=== PATIENT | female | born 1970 | race Caucasian/White ===

== ENCOUNTER 2017-10-04 14:31 | Observation (INO) ==
--- NOTE | 2017-10-04 15:12 | Emergency Department Note ---
Disposition Clinical Impression: Unable to ambulate, Intractable pain Left knee pain Qualifiers: Chronicity: acute Qualified Code(s): M25.562 - Pain in left knee Disposition: Admitted As Inpatient Condition: Good Time of Disposition: 16:46 General Adult HPI - General Chief complaint: ED Syncope Stated complaint: syncope, fall Time Seen by Provider: 10/04/17 14:34 Source: patient Mode of arrival: EMS Limitations: no limitations Nursing Notes Reviewed: Yes Vital Signs Reviewed: Yes - History of Present Illness HPI Narrative: Patient is a 47 year old female with no past medical history. She presents today due to left knee pain, nausea, near syncope and syncope. Patient was seen yesterday in the ER due to left lower showed any pain. She states that she was taking down decorations at home, was walking down stairs, turned to brass pickler a box and felt a snap/in her left knee. This caused immediate pain and incontinence her to fall down [address] hardwood steps. She says that she hit the back of her head on a hardwood floor at the bottom of the stairs. Did not lose consciousness. She came to the ER due to leg pain at that time. She had x -rays of the left tib-fib, left knee, left ankle that were all negative. She did not have a head CT at that time, did not exhibit any numbness, tingling, weakness at that time. She was sent home with a knee immobilizer, Beau wrap the left knee, NSAIDs, Lynwood for pain control. She states that she has not been able to bear weight on the left lower extremity, has had difficulty with using crutches because she cannot get from a sitting to standing position on one leg. Overnight, she had worsening pain. She has had 2 episodes of syncope and nausea secondary to extreme pain when trying to bear weight on the left leg when getting up to go to the bathroom. Other than these episodes, she has no other near syncope or syncope that was not associated with trying to bear weight on the LLE. She also states that she cannot flex her left knee more than a few degrees. Otherwise, denies any other numbness, tingling, weakness, headache, changes in vision, chest pain, shortness of breath, abdominal pain, any other injuries that were not addressed at yesterday's visit. Pain Scale: 6 - Related Data Home Medications Medication Instructions Recorded Confirmed No Known Home Drugs 11/23/17 11/23/17 Allergies Allergy/AdvReac Type Severity Reaction Status Date / Time Penicillins Allergy Hives Verified 10/04/17 17:02 All systems ED: reviewed and negative except as stated. Constitutional: Denies: fever ENT ED: Denies: ear pain Cardiovascular: Denies: chest pain Respiratory: Denies: cough, dyspnea, wheezes, hemoptysis, stridor, sputum production Gastrointestinal: Denies: abdominal pain, nausea, vomiting, diarrhea Musculoskeletal: Reports: arthralgia, myalgia Neurological: Denies: weakness, paresthesias Past Medical History - Past Medical History Attestation: Yes The following information was validated with the patient. 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: non-contributory - Social History Smoking Status: Never smoker Smokeless Tobacco Status: No Alcohol use: Reports: none Drug use: Reports: none Physical Exam - General Limitations: no limitations General appearance: alert, in distress - Head Head exam: atraumatic, normocephalic, normal inspection - Eye Eye exam: Present: normal appearance, PERRL, EOMI - ENT ENT exam: normal exam, normal oropharynx, mucous membranes moist - Neck Neck exam: Present: normal inspection, full ROM, trachea midline - Chest Chest inspection: Present: normal inspection, symmetric chest wall rise - Respiratory Respiratory exam: Present: normal lung sounds bilaterally - Cardiovascular Cardiovascular exam: Present: regular rate, normal rhythm, normal heart sounds - Abdominal Exam Abdominal exam: Present: soft, Non-Tender. Absent: tenderness, distention, guarding, rebound, rigidity - Extremities Exam Extremities exam: Present: normal inspection, tenderness (tenderness of left medial and lateral joint line, suprapatellar tendon of left knee. Cannot actively flex or extend knee. Knee can only be taken to approx 30 degrees of flexion due to pain. Mild swelling of left knee, difficult to assess due to body habitus. ) - Neurological Exam Neurological exam: Present: alert, oriented X3. Absent: motor sensory deficit - Psychiatric Psychiatric exam: Present: normal affect, normal mood - Skin Skin exam: Present: warm, dry, intact, normal color Course Course Narrative: Vitals WNL on exam. Physical exam shows: tenderness of left medial and lateral joint line, suprapatellar tendon of left knee. Cannot actively flex or extend knee. Knee can only be taken to approx 30 degrees of flexion due to pain. Mild swelling of left knee, difficult to assess due to body habitus. Patient herself is concerned that she cannot get herself out of bed, cannot perform AEDs due to inability to get out of bed. We discussed that patient needs MRI for further internal assessment of left knee, but this cannot be obtained in ER. WIll try to get patient pain controlled in ER as she is only taking 1 norco 5 q4 hours. WIll give her two norco 5mg here and reassess. If patient cannot get pain controlled and ambulate, will have to admit for further care and ortho follow up. I do not feel that patient needs any additional workup for her syncope as it is only related to extreme pain when trying to bear weight on left knee. 16:28 patient reassessed. She is still having pain despite two 5mg Lynwood. Patient is given 4 mg IV morphine. We will reassess and provide additional medication if needed. If patient continues to have an trackable pain, unable to ambulate, will admit for further care. 16:41 Patient requiring additional pain medication for intractable left knee pain, unable to get out of bed due to pain in left knee. Dr. Putnam accepted for admission, orthopedics Dr. Gibbs has been consulted and will evaluate patient while in hospital. Vital Signs Temperature 97.9 F 10/04/17 14:44 Pulse Rate 73 10/04/17 14:44 Respiratory Rate 18 10/04/17 14:44 Blood Pressure 145/88 10/04/17 14:44 O2 Sat by Pulse Oximetry 100 10/04/17 14:44 Temperature 97.7 F 10/04/17 20:33 Pulse Rate 68 10/04/17 20:33 Respiratory Rate 16 10/04/17 20:33 Blood Pressure 125/77 10/04/17 20:33 O2 Sat by Pulse Oximetry 96 10/04/17 20:33 Oxygen Delivery Oxygen Delivery Room Air Medical Decision Making - [facility] Narrative Medical decision making narrative: Patient is requiring multiples doses of pain medication for intractable left knee pain, unable to get out of bed due to pain in left knee, unable to ambulate. Will admit for further pain control and evaluation by ortho consult. Concern for possible torn meniscus or ligamentous injury. - Medical Records Medical records reviewed: Yes I reviewed the patient's medical records. - Lab Data Lab results reviewed: Yes I reviewed the patient's lab results. Result diagrams: 10/04/17 20:47 - Radiology Data Radiology results reviewed: Yes I reviewed the patient's radiology results. - EKG Data EKG #1 EKG attestation: Yes I reviewed and interpreted this EKG. EKG results narrative: 10/04/2017 at 14:51. Normal sinus rhythm. Rate 70. IL 188. QRS 87. QTC 385. Left axis deviation. No acute ST elevation or depression. S.B.A.R. - S.Jese.A.Val Situation: Demographics, MOA Background: Presenting Complaint, Relevant PMH, Meds, & Allergies Assessment: Vital Signs, Course and respsone to treatment, Exam Concerns, Patient/Family Expectation, Pertinant Lab Results, Outstanding Labs Recommendation: Barrier(s) to disposition, Recommendation based on pending studies, treatments, or consults S.B.A.RHeidi Report Given to: Dr. Indy Pedersen Repor Time: 16:45 Attestation Statement - Attestation Attestation: I, Praful Robertson, examined this patient and my medical decision-making was reviewed with the SLOT FLOOR ATTENDANT/PA/Advanced Practice Nurse/Resident Physician. I agree with the documented findings, disposition and treatment plan as described except to the extent set forth below. 47-year-old female presents emergency Department with intractable pain of the left knee. Patient states she twisted her knee and felt a pop, falling down the stairs few days ago, she was prescribed Lynwood which she has taken at home without improvement of her pain. Patient states the pain becomes so severe she becomes lightheaded, nauseated and has not syncopized. Denies chest pain or shortness of breath. Denies fever, chills, abdominal pain, diarrhea. X-rays performed on her initial visit which did not show evidence of fracture. Patient likely needs MRI for evaluation of ligamentous injury. Patient given multiple doses of pain medication emergency Department however she is unable to ambulate with crutches. Patient will be admitted to the hospital for intractable pain and likely rehabilitation facility.
[2017-10-04] MEDS ORDERED: *HR* HYDROcodone/Acet 5/325 mg TABLET PO ONE (15:14)
[2017-10-04] MEDS ORDERED: *HR* Morphine 2 MG/ML SYRINGE IVP ONE ×2 (16:02→16:34)
--- NOTE | 2017-10-04 20:31 | Internal Med History&Physical ---
<Ramon Jin - Last Filed: 10/04/17 21:55> Date of Encounter: 10/04/17 Time of Encounter: 19:30 Assessment and Plan (1) Syncope Current visit: Yes Status: Acute Acute syncope this morning following a fall yesterday evening with head injury. Pt. states she is unsure if she blacked out during fall, but this morning she reports blacking out when returning from bathroom. States she became nauseous, diaphoretic, and went limp. caught her. Denies previous syncope, CVA, TIAs, or seizure hx. EKG today shows sinus rhythm with borderline left axis deviation, moderate voltage criteria for LVH, consider normal variant ( borderline ECG). Echocardiogram ordered. Continuous cardiac telemetry. Will order troponin to r/o possible ischemic incident. CT of the head/brain ordered to r/o possible intracranial bleeding. Falls/safety precautions. Pt. to be monitored closely for signs of neurologic changes or decline. Pt. at moderate risk for further morbidity based on sx and recent fall. Observation. Qualifiers: Syncope type: unspecified Qualified Code(s): R55 - Syncope and collapse (2) Fall Current visit: Yes Status: Acute Acute fall yesterday at 9 p.m. Pt. states she was decorating and turned to come down steps and heard/felt her left knee "pop". Fell down several steps, landing on her head. Unsure if she blacked out. Denies previous blackouts, seizures, CVA , or TIAs. Falls/safety precautions. PT/OT consults ordered to assess pt. for ambulation strength/safety. Qualifiers: Encounter type: initial encounter Qualified Code(s): W19.XXXA - Unspecified fall, initial encounter (3) Left knee pain Current visit: Yes Status: Acute Acute left knee pain d/t fall sustained yesterday. Pt. reports that she fell down several steps after hearing and feeling her knee "pop". States it feels like a similar incident in 2009 when she sprained her left knee. XR of the left ankle, knee, and tibia/fibula today shows Left knee: No evidence of acute fracture or dislocation. No focal osseous lesion. Moderate joint effusion. No focal soft tissue abnormality. Left tibia/fibula: There is no evidence of acute fracture. There is normal alignment. No acute joint abnormality. No focal osseous lesion. No focal soft tissue abnormality. Left ankle: No evidence of acute fracture or dislocation. Normal alignment of the ankle mortise. No focal osseous lesion. Prominent bony spurring along the plantar aspect of the calcaneus. No evidence of joint effusion. No focal soft tissue abnormality. CT of the left knee ordered to assess effusion. Stair-step pain medications for pain mgmt. Qualifiers: Chronicity: acute Qualified Code(s): M25.562 - Pain in left knee (4) DVT prophylaxis Current visit: Yes Status: Acute Bilateral SCD foot pumps on feet for DVT prophylaxis. Pharmacologic DVT prophylaxis contraindicated at this time until intracranial bleeding ruled out by CT. Internal Medicine - H&P: HPI Chief complaint: Syncope Admitted From: Emergency Dept Plans for Post Hospital Care: Home History of present illness: Ms. 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 Patient reports she fell at 9 PM yesterday down several stairs when she felt her left knee "pop". She reports she struck her head on the hardwood floor and landed with her feet over her head. Reports daily site on the right back of head. Unsure plucked out. Workup this morning and went to restroom with assistance of her . On the way back she reports she felt nauseous, diaphoretic, and went limp and blacked out for several seconds. Reports pain in left knee and back of head on right side but denies recent illness, fever, chills, vomiting, shortness of breath, chest pain, palpitations , changes in vision, unusual bleeding, abdominal pain, numbness, tingling, or hx of seizures/CVA/TIA. Past Med Surg Social Fam HX - Past Medical History Source: patient, old records reviewed Medical history: other (Previous heart murmur (Pt. reports as resolved)) Psychiatric history: anxiety - Past Surgical History Surgical History: other (Uterine ablation for polyps, tonsillectomy, and wisdom teeth extractions) - Social History Smoking Status: Never smoker Smokeless Tobacco Status: No Alcohol use: occasionally Drug use: none Current living situation: Home, With Family Activity Level: Independent ambulation Recent Out of Country Travel Within the Last 8 Weeks: No Exposure or Possible Exposure to Illness During Travel: No - Family History Mother Race: Family Member Ethnicity: Non- Living Status: Still Living Hx Family Cardiac Disorders: Yes (HTN) Father Race: Family Member Ethnicity: Non- Living Status: Still Living Hx Family Medical Disorders: No Sister Race: Family Member Ethnicity: Non- Living Status: Still Living Hx Family Medical Disorders: No Internal Medicine - H&P: Meds No Known Home Drugs 10/04/17 [History] 3 Allergy/AdvReac Type Severity Reaction Status Date / Time Penicillins Allergy Hives Verified 10/04/17 17:02 All Systems PM: A 10-system review of systems was performed and is negative for pertinent findings except as documented above in the HPI. - Constitutional Constitutional: no chills, no fever(s), no night sweats - EENT Eyes: no change in vision, no discharge, no pain, no photophobia Ears: no ear discharge, no ear pain, no tinnitus Nose, mouth and throat: no dysphagia, no nasal discharge, no neck pain, no sore throat - Breasts Breasts: as per HPI - Cardiovascular Cardiovascular ROS IM: as per HPI, syncope, no chest pain, no diaphoresis, no dyspnea, no lightheadedness, no palpitations - Respiratory Respiratory: no cough, no dyspnea, no wheezing, no excessive phlegm production - Gastrointestinal Gastrointestinal: no abdominal pain, no diarrhea, no hematemesis, no hematochezia, no melena, no nausea, no vomiting - Genitourinary Genitourinary: no change in urinary stream, no dysuria, no flank pain, no hematuria Menstruation: as per HPI, post menopausal - Musculoskeletal Musculoskeletal ROS IM: no numbness, no tingling - Integumentary Integumentary IM: no rash, no unusual bruising - Neurological Neurological ROS: no confusion, no convulsions, no focal weakness, no numbness, no tingling, no tremor(s) - Psychiatric Psychiatric: as per HPI, anxiety - Endocrine Endocrine IM: as per HPI - Hematologic/Lymphatic Hematologic/Lymphatic: no easy bruising - Allergic/Immunologic Allergic/Immunologic: as per HPI - Constitutional Vitals: Temp Pulse Resp BP Pulse Ox 97.7 F 71 16 110/56 94 10/04/17 14:49 10/04/17 17:35 10/04/17 17:57 10/04/17 17:57 10/04/17 17:35 General appearance: Present: cooperative, mild distress (D/t left knee pain), A& O X 3, pleasant, obese, answers questions appropriately - Head Additional comments: Raised area on the back of head on right side that pt. reports is tender and painful to touch on exam. - Eye Eye exam: Present: PERRL, conjuntiva pink, sclera anicteric Pupils: Present: PERRL - ENT ENT exam: Present: normal exam, normal external ear exam - Neck Neck exam general surgery: Present: normal inspection, supple, trachea midline. Absent: lymphadenopathy - Respiratory Respiratory exam: Present: CTAB. Absent: accessory muscle use, rales, rhonchi, wheezes - Cardiovascular Cardiovascular exam: Present: RRR, +S1, +S2. Absent: diastolic murmur, gallop, rubs, systolic murmur - GI/Abdominal GI/Abdominal exam: Present: normal bowel sounds, soft, no peritoneal signs. Absent: distended, tenderness - Rectal Rectal exam: Present: deferred - Additional comments: exam deferred. - Extremities Exam Extremities exam: Present: joint swelling (Left knee pain and edema), warm, radial pulses palpable and symmetrical. Absent: calf tenderness, cyanotic, pedal edema - Expanded Lower Extremities Exam Knee exam: Present: effusion (Left), swelling (Left) - Back Exam Back exam: Present: normal inspection - Neurological Exam Neurological exam: Present: CN II-XII intact, oriented X3, no focal deficits. Absent: pronater drift, facial droop, speech deficit - Psychiatric Psychiatric exam: Present: normal affect, normal mood - Skin Skin exam: Present: dry, intact Internal Med - H&P Results - Labs CBC & Chem 7: 10/04/17 20:47 10/04/17 20:47 - EKG Data EKG shows normal: sinus rhythm - EKG Data Prior EKG available for review: no EKG comments: 10/04/17 21:25 EKG dated 10/04/17 shows sinus rhythm with borderline left axis deviation, moderate voltage criteria for LVH. Consider normal variant. Borderline ECG. - Diagnostic Studies Other Images Additional comments: EXAMINATION: TWO VIEWS OF THE LEFT KNEE; 3 VIEWS OF THE LEFT ANKLE; AP AND LATERAL VIEWS OF THE LEFT TIBIA/FIBULA 10/04/2017 12:16 am COMPARISON: None. HISTORY: ORDERING SYSTEM PROVIDED HISTORY: fall, pain FINDINGS: Left knee: No evidence of acute fracture or dislocation. No focal osseous lesion. Moderate joint effusion. No focal soft tissue abnormality. Left tibia/fibula: There is no evidence of acute fracture. There is normal alignment. No acute joint abnormality. No focal osseous lesion. No focal soft tissue abnormality. Left ankle: No evidence of acute fracture or dislocation. Normal alignment of the ankle mortise. No focal osseous lesion. Prominent bony spurring along the plantar aspect of the calcaneus. No evidence of joint effusion. No focal soft tissue abnormality. XR/XR ankle complete min 3V LT IMPRESSION: No acute osseous abnormality. Moderate suprapatellar joint effusion. Bony spurring along the plantar aspect of the calcaneus. D/ / Serina Martin MD / Serina Martin MD Interpreting Provider: Serina Martin MD <Perry Ferraro - Last Filed: 10/05/17 05:48> Date of Encounter: 10/04/17 Internal Medicine - H&P: HPI History of present illness: Ms. Hogue is a 47 year old female All Systems PM: A 10-system review of systems was performed and is negative for pertinent findings except as documented above in the HPI. - Constitutional Vitals: Temp Pulse Resp BP Pulse Ox 98.0 F 76 12 125/81 93 10/05/17 04:55 10/05/17 04:55 10/05/17 04:55 10/05/17 04:55 10/05/17 04:55 Internal Med - H&P Results - Labs CBC & Chem 7: 10/04/17 20:47 10/04/17 20:47 Labs: Short CBC 10/04/17 Range/Units 20:47 WBC 8.6 (4.3-11.1) K/mcL Hgb 13.5 (11.5-15.4) g/dL Hct 41.6 (35.3-44.9) % Plt Count 229 (140-400) K/mcL Neutrophils # 6.1 (1.6-8.9) K/mcL BMP 10/04/17 20:47 Sodium 139 Potassium 3.7 Chloride 109 Carbon Dioxide 21 BUN 15 Creatinine 0.73 Glucose 108 H Calcium 9.8 Cardiac Enzymes 10/04/17 Range/Units 20:47 Troponin I 0.01 (0-0.03) ng/mL Liver Function 10/04/17 Range/Units 20:47 Total Bilirubin 1.0 (0.2-1.2) mg/dL AST 15 (5-34) Units/L ALT 20 (0-55) Units/L Alkaline Phosphatase 73 (38-126) Units/L Albumin 3.6 (3.5-5.0) g/dL - Impressions ITS Impressions Head CT 10/04/17 21:04 IMPRESSION: No acute intracranial abnormality. D/ / Behzad Fritz MD / Behzad Fritz MD Interpreting Provider: Behzad Fritz MD Knee CT 10/04/17 21:06 IMPRESSION: 1. Acute minimally did breast fracture of the posterior aspect of the lateral tibial plateau. 2. Moderate lipohemarthrosis. D/ / Ramiro Nava MD / Ramiro Nava MD Interpreting Provider: Ramiro Nava MD - Attending Attestation Date of service 10/04/2017. I conducted a face to face diagnostic evaluation of this patient and my medical decision-making was reviewed with the Nurse Practitioner. I agree with the documented findings, disposition and treatment plan as described except to the extent set forth below: Patient slipped while standing on the stairs in her home, went down 3 steps then left knee gave way and she heard a pop and then she tumbled the rest of the 10 stairs. Left knee is immobilized in a brace. Plan: CT of the left knee. Pain control. Orthopedics consult. PT OT. DVT prophylaxis with heparin.
[2017-10-04 20:53] LABS: Basophils % 0.2 %; Eosinophils # 0.1 K/mcL (0.0-0.6); Eosinophils % 0.7 %; Hematocrit 41.6 % (35.3-44.9); Hemoglobin 13.5 g/dL (11.5-15.4); Immature Granulocytes % 0.2 % (0-4); Lymphocytes % 23.6 %; Mean Corpuscular HGB Conc 32.5 g/dL (31.6-35.5); Mean Corpuscular Hemoglobin 27.7 pg (28.0-33.3); Mean Corpuscular Volume 85.4 fL (83.0-100.0); Monocytes # 0.4 K/mcL (0.0-1.3); Monocytes % 4.8 %; Neutrophils # 6.1 K/mcL (1.6-8.9); Platelet Count 229 K/mcL (140-400); Red Blood Count 4.87 M/mcL (3.82-4.97); Segmented Neutrophils % 70.5 %
[2017-10-04] MEDS ORDERED: Naloxone 0.4 MG/ML INJ IVP PRN (20:58)
[2017-10-04] MEDS ORDERED: Ondansetron 4 MG/2 ML VIAL IVP PRN (20:58)
[2017-10-04] MEDS ORDERED: Acetaminophen 325 MG TABLET PO PRN (20:58)
[2017-10-04 21:08] LABS: Alanine Aminotransferase 20 Units/L (0-55); Albumin 3.6 g/dL (3.5-5.0); Albumin/Globulin Ratio 1.1 (1.1-2.2); Alkaline Phosphatase 73 Units/L (38-126); Aspartate Amino Transferase 15 Units/L (5-34); BUN/Creatinine Ratio 21 (6-26); Blood Urea Nitrogen 15 mg/dL (7-20); Calcium 9.8 mg/dL (8.6-10.8); Carbon Dioxide 21 mEq/L (19-29); Chloride 109 mEq/L (98-109); Globulin 3.2 g/dL (2.4-3.5); Glucose 108 mg/dL (70-99); Osmolality,Calculated 289 (280-300); Potassium 3.7 mEq/L (3.5-4.5); Sodium 139 mEq/L (136-145); Total Protein 6.8 g/dL (6.0-8.3); eGFR For African Americans > 60 (> 60); eGFR For Non-African Americans > 60 (> 60)
[2017-10-04] MEDS: *HR* Morphine 2 MG/ML SYRINGE IVP PRN (23:03)
[2017-10-05] MEDS: *HR* HYDROcodone/Acet 5/325 mg TABLET PO PRN ×5 (00:37→23:01)
[2017-10-05 04:47] LABS: INR 1.1
[2017-10-05 04:50] LABS: Activated Partial Thrombo Time 25.3 Seconds (26.0-36.0)
[2017-10-05 05:01] LABS: Chol/HDL Ratio 5.5 (0-4.9); Magnesium 2.1 mg/dL (1.6-2.6)
[2017-10-05] MEDS: *HR* Heparin 5,000 UNIT/ML VIAL SQ SCH ×3 (06:17→23:01)
[2017-10-05] MEDS: *HR* Morphine 2 MG/ML SYRINGE IVP PRN ×2 (07:38→13:20)
--- NOTE | 2017-10-05 13:50 | Internal Med Progress Note ---
Date of Encounter: 10/05/17 Time of Encounter: 09:25 - Assessment and plan (1) Left knee pain Current Visit: Yes Status: Acute Assessment and plan: Patient reports that she was bringing a box of [place] decorations down from her loft . She said she was dragging the box and her left foot slipped on a stair, when she attempted to turn her knee turned only. She was brought to the emergency department, x-rays were completed, she was given an Beau wrap and a knee immobilizer and sent home. She returned later due to syncopal episode. She tells primary nurse she did not have any syncopal episodes, she tells me she had two. She says they are only due to pain. She states that she is unable to bear weight and is unable to go home. She has adequate range of motion to left hip and left ankle. Left lower extremity remains immobilized and elevated. CT left knee shows tibial plateau fracture, as well as moderate lipohemarthrosis. Orthopedics has been consulted, I appreciate their recommendations and consultation. She has been seen by ortho, recommend T scope splint, po pain management, as well as office follow up. Patient does not want to see physical therapy or occupational therapy until after she sees orthopedics, I agree that this is reasonable. They will see her in the morning. She has declined other further testing for syncope and called the orthopedics office today to see if they are going to come see her in the hospital. Knee CT 10/04/17 21:06 IMPRESSION: 1. Acute minimally did breast fracture of the posterior aspect of the lateral tibial plateau. 2. Moderate lipohemarthrosis. D/ / Ramiro Nava MD / Ramiro Nava MD Interpreting Provider: Ramiro Nava MD Qualifiers: Chronicity: acute Qualified Code(s): M25.562 - Pain in left knee (2) Unable to ambulate Current Visit: Yes Status: Acute Assessment and plan: Plan as above. Will defer to orthopedics for recommendations, also recommendations for pain management for fracture. (3) Intractable pain Current Visit: Yes Status: Acute Assessment and plan: Plan as above. (4) Syncope Current Visit: Yes Status: Acute Assessment and plan: Patient reports that she had 2 syncopal episodes prior to her second ER visit yesterday. She states that she follows with cardiology [facility], Dr. Kimbrough. She says that she had an echocardiogram in December of this year, as well as a heart catheter in July of this year. She was given a clean bill of health both times. She states that she does not need another echocardiogram or carotid Dopplers and calls both tests unnecessary. She refused to go to either test and they were canceled by the respective departments. She has declined further testing and I have recommended that she follow up with her medical stenographer after discharge. Qualifiers: Syncope type: unspecified Qualified Code(s): R55 - Syncope and collapse (5) DVT prophylaxis Current Visit: Yes Status: Acute Assessment and plan: Heparin SQ - Time Spent With Patient less than 15 minutes - Subjective Interval history: The patient was seen and assessed at 9:25 AM. She reports that she was bringing a tote of [place] decorations down from her loft, and fell on the slick edge of the carpet that is padded. Her first visit to the emergency department was due to the fall, she was splinted and sent home. She returned later in the evening complaining of syncopal episode 2. She states that she follows with cardiology at [facility] and has had recent workups this year. Initially she tells primary nurse that she did not have any syncopal episodes, when I enter the room she tells me she has syncopal episodes. She agreed to have a stress test since her last one was in December of this year. When transport came to get her she refused to go so that she did not need the test. She also called orthopedics office to see if they are going to come see her today. She also has refused carotid Dopplers. She states they are unnecessary test and only wants to have her knee looked at. She denies headache , blurred vision, abdominal pain, nausea, vomiting, diaphoresis, or diarrhea. She denies vision changes, dizziness, presyncope, or another syncopal episode. - Constitutional Vitals: Temp Pulse Resp BP Pulse Ox 98.3 F 51 16 139/89 96 10/05/17 10:55 10/05/17 10:55 10/05/17 10:55 10/05/17 10:55 10/05/17 10:55 General appearance: Present: cooperative, mild distress (D/t left knee pain), A& O X 3, morbidly obese, pleasant, no acute distress, obese, answers questions appropriately - Head Head exam: Present: atraumatic, normal inspection, normocephalic - Eye Eye exam: Present: normal appearance, conjuntiva pink, sclera anicteric - Neck Neck exam general surgery: Present: supple, trachea midline. Absent: lymphadenopathy - Respiratory Respiratory exam: Present: CTAB. Absent: accessory muscle use, rales, rhonchi, wheezes - Cardiovascular Cardiovascular exam: Present: RRR, +S1, +S2. Absent: diastolic murmur, gallop, rubs, systolic murmur - GI/Abdominal GI/Abdominal exam: Present: normal bowel sounds, soft. Absent: distended, hepatomegaly, tenderness - Extremities Exam Extremities exam: Present: normal inspection, warm, radial pulses palpable and symmetrical. Absent: calf tenderness, cyanotic, full ROM, pedal edema Additional comments: Patient has knee immobilizer and Beau to left lower extremity. - Neurological Exam Neurological exam: Present: alert, oriented X3, pronater drift. Absent: facial droop, speech deficit - Skin Skin exam: Present: dry, intact, normal color, warm. Absent: rash Internal Medicine: Result - Labs CBC & Chem 7: 10/04/17 20:47 10/04/17 20:47 Labs: Short CBC 10/04/17 Range/Units 20:47 WBC 8.6 (4.3-11.1) K/mcL Hgb 13.5 (11.5-15.4) g/dL Hct 41.6 (35.3-44.9) % Plt Count 229 (140-400) K/mcL Neutrophils # 6.1 (1.6-8.9) K/mcL BMP 10/04/17 20:47 Sodium 139 Potassium 3.7 Chloride 109 Carbon Dioxide 21 BUN 15 Creatinine 0.73 Glucose 108 H Calcium 9.8 Cardiac Enzymes 10/04/17 Range/Units 20:47 Troponin I 0.01 (0-0.03) ng/mL Liver Function 10/04/17 Range/Units 20:47 Total Bilirubin 1.0 (0.2-1.2) mg/dL AST 15 (5-34) Units/L ALT 20 (0-55) Units/L Alkaline Phosphatase 73 (38-126) Units/L Albumin 3.6 (3.5-5.0) g/dL - ABG Interpretation ABG results: PT/INR, D-dimer PT 12.0 Seconds (9.4-12.1) 10/05/17 04:21 - Impressions Impressions Head CT 10/04/17 21:04 IMPRESSION: No acute intracranial abnormality. D/ / Behzad Fritz MD / Behzad Fritz MD Interpreting Provider: Behzad Fritz MD Knee CT 10/04/17 21:06 IMPRESSION: 1. Acute minimally did breast fracture of the posterior aspect of the lateral tibial plateau. 2. Moderate lipohemarthrosis. D/ / Ramiro Nava MD / Ramiro Nava MD Interpreting Provider: Ramiro Nava MD Consult Discharge Plan - Plan Referrals: Nury Collazo MD [Primary Care Provider] -
--- NOTE | 2017-10-05 14:41 | Orthopedic Consult Note ---
Date of Encounter: 10/05/17 Time of Encounter: 14:41 Assessment and Plan (1) Left knee pain Current Visit: Yes Status: Acute The diagnosis and treatment plan were discussed with Ade. Her fracture is essentially nondisplaced and will best be treated nonoperatively. She should remain nonweightbearing of the left lower extremity. We will get her a T scope brace that can be unlocked. She can be range of motion as tolerated of the left knee. No plans for further orthopedic management, we will sign off. Follow-up in 3 weeks in the office. Qualifiers: Chronicity: acute Qualified Code(s): M25.562 - Pain in left knee History of Present Illness Chief complaint: L knee pain HPI: Ms. Hogue is a 47 year old female who fell down some stairs 2 days ago injuring her left knee. She was admitted to the hospital service for intractable knee pain, and to work up for a syncopal event. She states she is experiencing medial lateral knee pain with swelling currently. She is unable to ambulate. She denies any chest pain or shortness of breath currently. She is in a knee immobilizer currently and does have pain with range of motion the knee. Past Med Surg Social Fam HX - Past Medical History Medical history: other (Previous heart murmur (Pt. reports as resolved)) Psychiatric history: anxiety - Past Surgical History Surgical History: other (Uterine ablation for polyps, tonsillectomy, and wisdom teeth extractions) - Social History Smoking Status: Never smoker Smokeless Tobacco Status: No Alcohol use: occasionally Drug use: none - Family History Mother Race: Family Member Ethnicity: Non- Living Status: Still Living Hx Family Cardiac Disorders: Yes (HTN) Father Race: Family Member Ethnicity: Non- Living Status: Still Living Hx Family Medical Disorders: No Sister Race: Family Member Ethnicity: Non- Living Status: Still Living Hx Family Medical Disorders: No Medications and Allergies No Known Home Drugs 10/04/17 [History] 3 Allergy/AdvReac Type Severity Reaction Status Date / Time Penicillins Allergy Hives Verified 10/04/17 17:02 All Systems Reviewed: A 10-system review of systems was performed and is negative for pertinent findings except as documented above in the HPI. Physical Exam - Constitutional Vitals: Temp Pulse Resp BP Pulse Ox 98.3 F 51 16 139/89 96 11/24/17 10:55 10/05/17 10:55 10/05/17 10:55 10/05/17 10:55 10/05/17 10:55 General appearance IM: A&O X 3 Exam: Consult Exam: Constitutional -Vitals reviewed -The patient is well developed and well nourished. -Mood is pleasant. -The patient is well groomed. Psychiatric -The patient is fully alert and oriented x 3. Respiratory: -Respiratory effort normal Abdomen: -Soft abdomen -Non tender -Non distended: Left upper extremity: -No deformities. The overlying skin is intact. No obvious signs of acute trauma. -No tenderness to palpation throughout. -No significant pain with passive motion of the shoulder, elbow, wrist, and fingers within the limits of the bed. -Able to make an "OK" sign, cross the index and long fingers, and extend the thumb. -Sensation grossly intact to light touch throughout the median, radial, and ulnar distributions. -Radial pulse is present; Fingers have good capillary refill. Right upper extremity: -No deformities. The overlying skin is intact. No obvious signs of acute trauma. -No tenderness to palpation throughout. -No significant pain with passive motion of the shoulder, elbow, wrist, and fingers within the limits of the bed. -Able to make an "OK" sign, cross the index and long fingers, and extend the thumb. -Sensation grossly intact to light touch throughout the median, radial, and ulnar distributions. -Radial pulse is present; Fingers have good capillary refill. Left lower extremity: -No deformities. The overlying skin is intact. Swelling of the right knee. -TTP diffusely over knee. -Pain with knee ROM. No pain with log roll/IR. No pain with passive stretch of toes. -Knee exam limited due to acute pain. -Able to dorsiflex and plantarflex the ankle and toes. -Sensation is grossly intact to light touch throughout the sural, saphenous, superficial peroneal, and deep peroneal distributions. -Toes have good capillary refill. Right lower extremity: -No deformities. The overlying skin is intact. No obvious signs of acute trauma. -No tenderness to palpation throughout. -No pain with passive motion of the hip, knee, ankle, and toes within the limits of the bed. -No pain with axial loading of the thigh. -Able to dorsiflex and plantarflex the ankle and toes. -Sensation is grossly intact to light touch throughout the sural, saphenous, superficial peroneal, and deep peroneal distributions. -Toes have good capillary refill. Results - Labs Result Diagrams: 10/04/17 20:47 10/04/17 20:47 Labs: Abnormal lab results MCH 27.7 pg (28.0-33.3) L 10/04/17 20:47 MPV 9.0 fL (9.4-12.4) L 10/04/17 20:47 APTT 25.3 Seconds (26.0-36.0) L 10/05/17 04:21 Glucose 108 mg/dL (70-99) H 10/04/17 20:47 Cholesterol 205 mg/dL (< 200) H 10/05/17 04:21 LDL Cholesterol, Calc 146 mg/dL (0-99) H 10/05/17 04:21 HDL Cholesterol 37 mg/dL (40-59) L 10/05/17 04:21 Cholesterol/HDL Ratio 5.5 (0-4.9) H 10/05/17 04:21 H & H 10/04/17 Range/Units 20:47 Hgb 13.5 (11.5-15.4) g/dL Hct 41.6 (35.3-44.9) % All other labs normal. - Diagnostic results Knee x-ray: image reviewed Knee CT: image reviewed (Small non-displaced posterior tibial plateau fracture) Consult Discharge Plan - Plan Referrals: Nury Collazo MD [Primary Care Provider] -
[2017-10-06] MEDS: *HR* HYDROcodone/Acet 5/325 mg TABLET PO PRN ×2 (04:37→09:16)
[2017-10-06] MEDS: *HR* Heparin 5,000 UNIT/ML VIAL SQ SCH (06:04)
--- NOTE | 2017-10-06 10:20 | Discharge Summary ---
Date of Encounter: 10/06/17 Time of Encounter: 10:10 - Discharge Diagnosis (1) Left knee pain Priority: Primary Status: Acute Comments: Patient reports that she was bringing a box of [place] decorations down from her loft . She said she was dragging the box and her left foot slipped on a stair, when she attempted to turn her knee turned only. She was brought to the emergency department, x-rays were completed, she was given an Beau wrap and a knee immobilizer and sent home. She returned later due to syncopal episode. She tells primary nurse she did not have any syncopal episodes, she tells me she had two. She says they are only due to pain. She stated that she is unable to bear weight and is unable to go home yesterday. She has adequate range of motion to left hip and left ankle. Left lower extremity remains immobilized and elevated. CT left knee shows tibial plateau fracture, as well as moderate lipohemarthrosis. Orthopedics has been consulted, I appreciate their recommendations and consultation. She has been seen by ortho, recommend T scope splint, po pain management, as well as office follow up in 3 weeks. She has declined other further testing for syncope and called the orthopedics office today to see if they are going to come see her in the hospital. She will be discharged with [place] 5/325 mg 6 and a walker. She has been instructed to ice and elevate and nonweightbearing. Knee CT 10/04/17 21:06 IMPRESSION: 1. Acute minimally did breast fracture of the posterior aspect of the lateral tibial plateau. 2. Moderate lipohemarthrosis. D/ / Ramiro Nava MD / Ramiro Nava MD Interpreting Provider: Ramiro Nava MD Qualifiers: Chronicity: acute Qualified Code(s): M25.562 - Pain in left knee (2) Unable to ambulate Priority: Secondary Status: Acute Comments: Plan as above. Patient has been able to get up out of bed and use walker today. (3) Intractable pain Priority: Secondary Status: Resolved Comments: Patient reports that since she has had splint on and change the position of her leg, she has received adequate pain relief. As above. (4) Syncope Priority: Secondary Status: Acute Comments: Patient reports that she had 2 syncopal episodes prior to her second ER visit yesterday. She states that she follows with cardiology [facility], Dr. Kimbrough. She says that she had an echocardiogram in December of this year, as well as a heart catheter in July of this year. She was given a clean bill of health both times. She states that she does not need another echocardiogram or carotid Dopplers and calls both tests unnecessary. She refused to go to either test and they were canceled by the respective departments. She has declined further testing and I have recommended that she follow up with her shop service technician after discharge. Qualifiers: Syncope type: unspecified Qualified Code(s): R55 - Syncope and collapse (5) Morbid obesity Priority: Secondary Status: Chronic Comments: Chronic. Lifestyle changes. (6) DVT prophylaxis Priority: Secondary Status: Acute Comments: Heparin subcutaneous. Patient has also been ambulatory intermittently. - Discharge Medications Prescriptions: HYDROcodone/Acet 5/325 mg [[place] 5-325 mg] 1 tab PO Q6H PRN #6 tablet PRN Reason: Severe Pain Home Medications: HYDROcodone/Acet 5/325 mg [[place] 5-325 mg] 1 tab PO Q6H PRN #6 tablet 10/06/17 [ Rx] Allergies/Adverse Reactions: 3 Allergy/AdvReac Type Severity Reaction Status Date / Time Penicillins Allergy Hives Verified 10/04/17 17:02 Procedures/tests Complete & Pending: Procedures Performed prior 72 hours Category Date Time Status CT head/brain wo con [CT] Routine Cat Scan 10/04/17 21:[address] knee LT wo con [CT] Routine Cat Scan 10/04/17 21:06 Completed Date of admission: 10/04/17 17:22 Primary care physician: Nury Collazo, Consults: 10/04/17 21:02 Consult to Occupational Therapy [CONS] Routine Comment: Evaluate, develop and implement POC Reason for Consult: Patient reports difficulty and pain w/ambulation and weight-bearing on left leg. Please assess for strength, stability, safety, ambulation, and possible assistive needs for home for post-discharge planning. 10/04/17 21:03 Consult to Physical Therapy [CONS] Routine Comment: Evaluate, develop and implement POC Reason for Consult: Patient reports difficulty and pain w/ambulation and weight-bearing on left leg. Please assess for strength, stability, safety, ambulation, and possible assistive needs for home for post-discharge planning. Discharging clinician: Rose Cruz Anticipated date of discharge: 10/06/17 - Patient Status Disposition: Home, Self-Care Condition: Good Functional capacity at discharge: uses cane/walker Overall status at discharge: patient is progressing back to baseline - Discharge Instructions Follow Up With: Nury Collazo MD [Primary Care Provider] - Additional Instructions: Please follow-up with orthopedics as scheduled. Resume your normal activities as tolerated. Do not bear weight on your left leg and usual walker at all times. Resume your normal diet. Take her [place] only as needed for severe pain, you may alternate between ibuprofen 600 mg every 6 hours and the [place] as needed. Ice and elevate the extremity Return to the emergency department as needed for any other problems or concerns. - Diet and Activity Activity: increase activity as tolerated, resume usual activities as tolerated Diet: advance to your usual diet Interval History: Please see assessment and plan per hospital course. I ran an OAR[facility] report on patient prior to prescribing narcotic pain medication. She had 0 prescriptions. Hospital course: Ms. Hogue is a 47 year old female - Time Spent with Patient Total time spent providing and/or coordinating discharge services: Less than 30 minutes - Constitutional Vitals: Temp Pulse Resp BP Pulse Ox 97.4 F L 67 16 122/80 94 10/06/17 07:20 10/06/17 07:20 10/06/17 07:20 10/06/17 07:20 10/06/17 07:20 General appearance: Present: cooperative, mild distress (D/t left knee pain), A& O X 3, morbidly obese, pleasant, no acute distress, obese, answers questions appropriately - Head Head exam: Present: atraumatic, normal inspection, normocephalic - Eye Eye exam: Present: normal appearance, conjuntiva pink, sclera anicteric - Neck Neck exam general surgery: Present: supple, trachea midline. Absent: lymphadenopathy - Respiratory Respiratory exam: Present: CTAB. Absent: accessory muscle use, rales, respiratory distress, rhonchi, wheezes - Cardiovascular Cardiovascular exam: Present: RRR, +S1, +S2. Absent: diastolic murmur, gallop, rubs, systolic murmur - GI/Abdominal GI/Abdominal exam: Present: normal bowel sounds, soft, no peritoneal signs. Absent: distended, hepatomegaly, tenderness - Extremities Exam Extremities exam: Present: normal capillary refill, normal inspection, pedal edema, tenderness, warm, radial pulses palpable and symmetrical. Absent: calf tenderness, cyanotic - Neurological Exam Neurological exam: Present: alert, oriented X3, no focal deficits. Absent: facial droop, speech deficit - Skin Skin exam: Present: dry, intact, normal color, warm. Absent: rash
[2017-10-06 11:42] VITALS: BP 139/91
--- NOTE | 2017-10-08 10:43 | Electrocardiograph Report ---
[place] [id number] Test Date: 2017-10-04 Pat Name: Ade Hogue Department: 104 Room: 3B Gender: F Funder: : 1970 Requested By: Rose Cruz Order Number: [id number] Reading MD: Roman Morales MD Measurements Intervals [place] Rate: 70 P: 38 CO: 188 QRS: -21 QRSD: 87 T: 6 QT: 364 QTc: 385 Interpretive Statements SINUS RHYTHM BORDERLINE LEFT AXIS DEVIATION MODERATE VOLTAGE CRITERIA FOR LVH, CONSIDER NORMAL VARIANT Electronically Signed On 10-08-2017 10:41:18 EST by Roman Morales MD
== END 2017-10-06 14:03 | disposition home or self-care (01) ==
LOC: EMEROO 14:31 → 3BNU 14:31
PROVIDERS: ADMIT Registered Nurse; ATTEND Registered Nurse